=== PATIENT | male | born 1970 | race Hispanic/Latino ===

== ENCOUNTER 2018-08-06 21:07 | Inpatient (IN) | payer OTHER ==
[2018-08-06] MEDS ORDERED: NACL 0.9% 1000 ML IV ONE (23:00)
[2018-08-06] MEDS ORDERED: TORADOL IV ONE (23:01)
[2018-08-06] MEDS ORDERED: VANCOMYCIN 1,250 MG in NACL 0.9% 250ML 250 ML IV ONE (23:02)
[2018-08-06] MEDS ORDERED: BOOSTRIX IM ONE (23:02)
--- NOTE | 2018-08-06 23:08 | Emergency Department Report ---
ED Extremity Problem HPI - General Chief complaint: Extremity Problem,Nontraumatic Stated complaint: SWOLLEN L ARM Time Seen by Provider: 08/06/18 22:53 Source: patient, old records reviewed Mode of arrival: Ambulatory Limitations: No Limitations - History of Present Illness Initial comments: 47-year-old right-hand dominant male with a past medical history previous staph infection presents to hospital complaining of pain, swelling, redness, and drainage from left arm and wrist. Patient admits to shooting up heroin in the mid left forearm 2 days ago prior to symptom onset. Patient states he typically does not use IV drugs but used to days ago because her friend had some heroin. Patient has history of bilateral axilla MRSA infections while he was incarcerated. He cannot remember if he has received tetanus within 10 years. Patient complains of moderate to severe pain to his left forearm and wrist with watery serous drainage. Subjective fever reported. - Related Data Allergies Allergy/AdvReac Type Severity Reaction Status Date / Time No Known Allergies Allergy Unverified 08/06/18 21:35 ED Review of Systems ROS: Stated complaint: SWOLLEN L ARM Other details as noted in HPI Comment: All other systems reviewed and negative ED Past Medical Hx - Past Medical History Additional medical history: Hx staph infection in Bilateral armpits - Surgical History Past Surgical History?: No - Social History Smoking Status: Heavy Tobacco Smoker Substance Use Type: Marijuana ED Physical Exam - General Limitations: No Limitations - Other Other exam information: General: No limitations, patient is alert in no acute distress Head exam: Atraumatic, normocephalic Eyes exam: Normal appearance, pupils equal reactive to light, extraocular movements intact ENT: Moist mucous membrane, normal oropharynx Neck exam: Normal inspection, full range of motion, no meningismus nontender Respiratory exam: Clear to auscultation bilateral, no wheezes, rales, crackles Cardiovascular: Normal rate and rhythm, normal heart sounds Abdomen: Soft, nondistended, and nontender, with normal bowel sounds, no rebound, or guarding Extremity: Full range of motion. Cellulitis/erythema and warmth noted to left volar forearm extending to wrists and proximal hand. Wrist has 2 open sores with mild serous drainage and yellow exudate. Back: Normal Inspection, full range of motion, no tenderness Neurologic: Alert, oriented x3, cranial nerves intact, no motor or sensory def icit Psychiatric: normal affect, normal mood Skin: Warm, dry, intact ED Course Vital Signs 08/06/18 08/06/18 08/06/18 21:28 23:35 23:40 Temperature 98.6 F 98.1 F Pulse Rate 105 H 88 Respiratory 20 18 18 Rate Blood Pressure 108/81 Blood Pressure 105/71 [Right] O2 Sat by Pulse 100 99 Oximetry ED Medical Decision Making - Lab Data Result diagrams: 08/06/18 23:20 08/06/18 23:20 Lab Results 08/06/18 08/06/18 08/06/18 Range/Units 23:20 23:20 23:20 WBC 8.9 (4.5-11.0) K/mm3 RBC 4.96 (3.65-5.03) M/mm3 Hgb 16.0 H (11.8-15.2) gm/dl Hct 46.5 H (35.5-45.6) % MCV 94 (84-94) fl MCH 32 (28-32) pg MCHC 34 (32-34) % RDW 13.6 (13.2-15.2) % Plt Count 180 (140-440) K/mm3 Lymph % (Auto) 12.5 L (13.4-35.0) % [place] % (Auto) 10.0 H (0.0-7.3) % Eos % (Auto) 0.9 (0.0-4.3) % Baso % (Auto) 0.6 (0.0-1.8) % Lymph # 1.1 L (1.2-5.4) K/mm3 [place] # 0.9 H (0.0-0.8) K/mm3 Eos # 0.1 (0.0-0.4) K/mm3 Baso # 0.1 (0.0-0.1) K/mm3 Seg Neutrophils % 76.0 H (40.0-70.0) % Seg Neutrophils # 6.8 (1.8-7.7) K/mm3 VBG pH (7.320-7.420) Sodium 137 (137-145) mmol/L Potassium 3.9 (3.6-5.0) mmol/L Chloride 96.7 L (98-107) mmol/L Carbon Dioxide 29 (22-30) mmol/L Anion Gap 15 mmol/L BUN 16 (9-20) mg/dL Creatinine 0.8 (0.8-1.5) mg/dL Estimated GFR > 60 ml/min BUN/Creatinine Ratio 20 % Glucose 97 (75-100) mg/dL Lactic Acid 2.10 H* (0.7-2.0) mmol/L Calcium 9.3 (8.4-10.2) mg/dL Total Bilirubin 0.70 (0.1-1.2) mg/dL AST 21 (5-40) units/L ALT 38 (7-56) units/L Alkaline Phosphatase 59 (35-129) units/L Total Creatine Kinase (55-170) units/L Total Protein 7.2 (6.3-8.2) g/dL Albumin 4.0 (3.9-5) g/dL Albumin/Globulin Ratio 1.3 % 08/06/18 08/06/18 Range/Units 23:20 23:20 WBC (4.5-11.0) K/mm3 RBC (3.65-5.03) M/mm3 Hgb (11.8-15.2) gm/dl Hct (35.5-45.6) % MCV (84-94) fl MCH (28-32) pg MCHC (32-34) % RDW (13.2-15.2) % Plt Count (140-440) K/mm3 Lymph % (Auto) (13.4-35.0) % [place] % (Auto) (0.0-7.3) % Eos % (Auto) (0.0-4.3) % Baso % (Auto) (0.0-1.8) % Lymph # (1.2-5.4) K/mm3 [place] # (0.0-0.8) K/mm3 Eos # (0.0-0.4) K/mm3 Baso # (0.0-0.1) K/mm3 Seg Neutrophils % (40.0-70.0) % Seg Neutrophils # (1.8-7.7) K/mm3 VBG pH 7.375 (7.320-7.420) Sodium (137-145) mmol/L Potassium (3.6-5.0) mmol/L Chloride (98-107) mmol/L Carbon Dioxide (22-30) mmol/L Anion Gap mmol/L BUN (9-20) mg/dL Creatinine (0.8-1.5) mg/dL Estimated GFR ml/min BUN/Creatinine Ratio % Glucose (75-100) mg/dL Lactic Acid (0.7-2.0) mmol/L Calcium (8.4-10.2) mg/dL Total Bilirubin (0.1-1.2) mg/dL AST (5-40) units/L ALT (7-56) units/L Alkaline Phosphatase (35-129) units/L Total Creatine Kinase 118 (55-170) units/L Total Protein (6.3-8.2) g/dL Albumin (3.9-5) g/dL Albumin/Globulin Ratio % - Radiology Data Radiology results: report reviewed FINAL REPORT EXAM: XR FOREARM LT HISTORY: infection COMPARISON: None available. FINDINGS: Two views of the left forearm obtained. Bony structures are intact. Joint spaces are preserved. No acute fracture dislocation. No focal bony erosive changes. IMPRESSION: No acute bony abnormality. - Medical Decision Making pt given vanc for mrsa cultures pending +IVDA tetanus provided 30 ml/kg bolus of NS hosp informed of admission - Differential Diagnosis cellulitis, MRSA, abscesses, IV drug abuse Critical Care Time: No Critical care attestation.: If time is entered above; I have spent that time in minutes in the direct care of this critically ill patient, excluding procedure time. ED Disposition Clinical Impression: Left arm cellulitis, Heroin abuse, IV drug abuse, Hx MRSA infection Disposition: OP ADMIT IP TO THIS HOSP Is pt being admited?: Yes Condition: Stable Time of Disposition: 00:01 (Dr Damon/hosp)
--- NOTE | 2018-08-06 23:24 | XRay Report ---
FINAL REPORT EXAM: XR FOREARM LT HISTORY: infection COMPARISON: None available. FINDINGS: Two views of the left forearm obtained. Bony structures are intact. Joint spaces are preserved. No a cute fracture dislocation. No focal bony erosive changes. IMPRESSION: No acute bony abnormality.
[2018-08-06 23:32] LABS: Basophils # (Auto) 0.1 K/mm3 (0.0-0.1); Basophils % (Auto) 0.6 % (0.0-1.8); Eosinophils # (Auto) 0.1 K/mm3 (0.0-0.4); Eosinophils % (Auto) 0.9 % (0.0-4.3); Hematocrit 46.5 % (35.5-45.6); Lymphocytes # (Auto) 1.1 K/mm3 (1.2-5.4); Lymphocytes % (Auto) 12.5 % (13.4-35.0); Mean Corpuscular HGB Conc 34 % (32-34); Mean Corpuscular Hemoglobin 32 pg (28-32); Mean Corpuscular Volume 94 fl (84-94); Monocytes # (Auto) 0.9 K/mm3 (0.0-0.8); Platelet Count 180 K/mm3 (140-440); Red Blood Count 4.96 M/mm3 (3.65-5.03); Red Cell Distribution Width 13.6 % (13.2-15.2)
[2018-08-06 23:48] LABS: Alanine Aminotransferase 38 units/L (7-56); BUN/Creatinine Ratio 20; Blood Urea Nitrogen 16 mg/dL (9-20); Calcium 9.3 mg/dL (8.4-10.2); Hemolysis Index 8
[2018-08-07] MEDS ORDERED: SODIUM CHLORIDE FLUSH SYRINGE 10 ML IV PRN (01:09)
[2018-08-07] MEDS ORDERED: ZOFRAN IV PRN (01:09)
[2018-08-07] MEDS ORDERED: TYLENOL PO PRN (01:09)
[2018-08-07] MEDS: PERCOCET 5/325 PO PRN ×3 (02:13→16:10)
[2018-08-07] MEDS: NACL 0.9% 1000 ML 1,000 ML IV SCH ×2 (02:16→13:32)
[2018-08-07] MEDS ORDERED: HABITROL TD ONE (02:48)
[2018-08-07] MEDS ORDERED: VANCOMYCIN PHARMACY TO DOSE IV SCH (04:00)
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
[2018-08-07] MEDS ORDERED: HABITROL TD SCH (10:00)
[2018-08-07] MEDS ORDERED: SODIUM CHLORIDE FLUSH SYRINGE 10 ML IV SCH (10:00)
[2018-08-07] MEDS ORDERED: VANCOMYCIN/NS 1 GM/250 ML 1 GM/250 ML BAG IV SCH (10:00)
[2018-08-07] MEDS ORDERED: AFLURIA QUAD 2018-2019 SYRINGE IM ONE (12:00)
[2018-08-07 17:47] LABS: Benzodiazepines Screen,Urine PRESUMPTIVE NEGATIVE; Cocaine Screen,Urine PRESUMPTIVE NEGATIVE; Methadone Screen,Urine PRESUMPTIVE NEGATIVE; Opiate Screen,Urine PRESUMPTIVE NEGATIVE
[2018-08-07 17:58] VITALS: BP 105/71
[2018-08-07 18:02] LABS: Amphetamine Screen,Urine PRESUMPTIVE POSITIVE; Cannabinoid Screen,Urine PRESUMPTIVE POSITIVE
== END 2018-08-07 19:48 | disposition left against medical advice (07) | DRG 603 ==
LOC: EDSEX → ED 21:07 → 3A 08-07 01:09
PROVIDERS: ATTEND Internal Medicine
DX: L03.114 Cellulitis of left upper limb (principal); F17.200 Nicotine dependence, unspecified, uncomplicated; F11.10 Opioid abuse, uncomplicated; Z80.9 Family history of malignant neoplasm, unspecified; Z53.21 Procedure and treatment not carried out due to patient leaving prior to being seen by health care provider
CPT/HCPCS: 36415; 80053; 80307; 82140; 82550; 82805; 85025; 85652; 87040; 87076; 87116; 87186; 90686; 90715; 99406; G0378; J1885; J3370; J7030; J7050